=== PATIENT | female | born 1955 | race Caucasian/White ===

== ENCOUNTER 2025-01-12 14:10 | Emergency (ER) | payer MEDICAID, MEDICARE ==
[2025-01-12] MEDS: Bacitracin Oint 1 GM U/D Packet TOP ONE (14:57)
== END 2025-01-12 15:29 | disposition home or self-care (01) ==
LOC: JP.ED 14:10
DX: S60.451A Superficial foreign body of left index finger, initial encounter (principal); E78.00 Pure hypercholesterolemia, unspecified; I10 Essential (primary) hypertension; Z88.1 Allergy status to other antibiotic agents; Z79.899 Other long term (current) drug therapy; W45.8XXA Other foreign body or object entering through skin, initial encounter; Y93.89 Activity, other specified
CPT/HCPCS: 99283; J2003